=== PATIENT | female | born 1985 | race Caucasian/White ===

== ENCOUNTER → 2016-06-07 | Outpatient (CLI) | payer OTHER ==
[~2016-06-07] MED LIST: BCPILLS PO; PRED20TA2 PO
== END | disposition home or self-care (01) ==
LOC: C.PATHSPEC 17:46
PROVIDERS: ATTEND Obstetrics & Gynecology
DX: R87.610 Atypical squamous cells of undetermined significance on cytologic smear of cervix (ASC-US) (principal)

== ENCOUNTER 2017-02-01 04:21 | Emergency (ER) | payer OTHER ==
[~2017-02-01] VITALS: Ht 176.5 cm; Wt 69.1 kg
[~2017-02-01 04:21] MED LIST changes: -PRED20TA2 PO
[2017-02-01 04:25] VITALS: TEMP 36.3; Ht 176.5 cm; Wt 69.1 kg
[2017-02-01] MEDS ORDERED: FAMOTIDINE 20MG/102 ML D5W IV STA (04:35)
[2017-02-01] MEDS ORDERED: DiphenhydrAMINE HCL 50 MG/ML VIAL IV STA (04:35)
[2017-02-01] MEDS ORDERED: DEXAMETHASONE SOD INJ 4 MG/ML VIAL IV STA (04:35)
[2017-02-01] MEDS ORDERED: FAMOTIDINE IV INJ 20 MG in SYRINGE 3 ML IV STA (04:43)
--- NOTE | 2017-02-01 04:45 | EMERGENCY ROOM VISIT NOTE ---
History First contact with patient: 04:30 Chief Complaint: SKIN PROBLEM Stated Complaint: ITCHY,HIVES ALL OVER BODY History of Present Illness The patient is a 31 year old female who presents to the Emergency Room with complaints of hives. The patient states that she woke up in the middle of the night with hives all over her trunk, arms, legs and face and some swelling of the right eye. The patient has an allergy to penicillins but has not had any medications recently. She does report that she just returned from vacation in [place] but denies any new soaps, lotions, detergents, foods or makeup. The patient denies any difficulty breathing, difficulty swallowing, nausea or vomiting. Review of Systems A complete 10 point review of systems was reviewed with the patient with pertinent positives and negatives as per history of present illness. All else were negative. Social History Smoking Status: Never Smoker Current/Historical Medications Scheduled Prednisone (Prednisone Tab), 2 TAB PO DAILY Physical Exam Vital Signs Date Time Temp Pulse Resp B/P (MAP) Pulse Ox O2 Delivery O2 Flow Rate FiO2 02/01/17 05:34 66 18 110/70 100 02/01/17 04:25 36.3 92 18 137/86 100 Room Air Physical Exam VITALS: Vitals are noted on the nurse's note and reviewed by myself. Vital signs stable. GENERAL: This is a 31-year-old female, in no acute distress, nondiaphoretic, well-developed well-nourished. SKIN: There are erythematous urticarial lesions over bilateral arms, chest, mid back and bilateral lower legs. EARS: External auditory canals clear, tympanic membranes pearly waddell without erythema or effusion bilaterally. EYES: Mild right periorbital swelling. Pupils equal round and reactive to light and accommodation. MOUTH: Mucous membranes moist. Tonsils are not enlarged. Pharynx without erythema or exudate. Airway patent. NECK: Supple without nuchal rigidity. No lymphadenopathy. HEART: Regular rate and rhythm without murmurs gallops or rubs. LUNGS: Clear to auscultation bilaterally without wheezes, rales or rhonchi. NEURO: Patient was alert and oriented to person place and time. Medical Decision & Procedures Medications Administered Medications (Trade) Dose Ordered Sig/Elvin Route Start Time Stop Time Status Last Admin Dose Admin Diphenhydramine HCl (Benadryl Inj) 25 mg NOW STAT IV 02/01/17 04:35 02/01/17 04:36 DC 02/01/17 04:50 25 MG Dexamethasone Sodium Phosphate (Decadron Inj) 10 mg NOW STAT IV 02/01/17 04:35 02/01/17 04:36 DC 02/01/17 04:52 10 MG Famotidine (Pepcid 20mg/100 ml) 20 mg ONE STAT IV 02/01/17 04:35 02/01/17 04:36 DC 02/01/17 05:05 20 MG Medical Decision Differential diagnosis includes allergic dermatitis, urticaria, anaphylaxis, among others. The patient is a 31-year-old female who presents today complaining of itching and hives. Exam is consistent with urticaria. Patient was given IV Benadryl, Decadron and Zantac with relief of symptoms. She will be placed on prednisone and was instructed to continue Benadryl as needed. She will follow-up with her primary care provider for further evaluation. She verbalized understanding of my assessment and treatment plan and was discharged home in good condition. Medication Reconcilliation Current Medication List: was personally reviewed by me Blood Pressure Screening Patient's blood pressure: Normal blood pressure Impression Primary Impression: Urticaria Departure Information Dispostion Home / Self-Care Condition GOOD Prescriptions Prednisone (Prednisone Tab) 20 Mg Tab 2 TAB PO DAILY for 4 Days, #8 TAB Prov: Lisa Cline ., UMBERTO 02/01/17 Referrals No Doctor, Assigned (PCP) Patient Instructions My [facility] Additional Instructions You have been treated in the Emergency Department for an Allergic Reaction. You have been treated and monitored in the Emergency Department appropriately. You should take Benadryl (diphenhydramine) 25-50 mg orally every 4-6 hours as needed for itching/rash. You should take Zantac (ranitidine) 75 mg orally once daily as needed for itching/rash. You have been prescribed Prednisone 40 mg to be taken orally once a day for the next 4 days. This is an anti-inflammatory medicine to be used to help minimize your symptoms. You do not need to take this medication if the rash resolves today. If it persists, you may start it tomorrow. As with every Emergency Department visit, you should follow-up with your primary care provider in 2-3 days for reevaluation. Return to the Emergency Department if your current symptoms worsen despite treatment course outlined above, or if you develop any of the following symptoms : wheezing, tongue or face swelling, tightness in your throat, shortness of breath, or fainting.
[2017-02-01] MEDS ORDERED: PRED20TA2 PO (05:25)
[2017-02-01 05:34] VITALS: BP 110/70; PULSE 66; O2SAT 100
== END 2017-02-01 05:34 | disposition home or self-care (01) ==
LOC: C.EDB 04:22
DX: L50.9 Urticaria, unspecified (principal)

== ENCOUNTER → 2017-04-22 | Outpatient (CLI) | payer OTHER | END | disposition home or self-care (01) | LOC: C.PATHSPEC 18:03 | PROVIDERS: ATTEND Obstetrics & Gynecology | DX: D06.9 Carcinoma in situ of cervix, unspecified (principal) ==

== ENCOUNTER → 2017-05-23 | Outpatient (CLI) | payer OTHER | END | disposition home or self-care (01) | LOC: C.PATHSPEC 13:49 | PROVIDERS: ATTEND Obstetrics & Gynecology | DX: R87.613 High grade squamous intraepithelial lesion on cytologic smear of cervix (HGSIL) (principal) ==

== ENCOUNTER 2022-02-05 07:11 | Inpatient (IN) ==
[2022-02-05] MEDS ORDERED: LIDOCAINE 1% LOCAL 20 ML VIAL INFIL PRN (07:21)
[2022-02-05] MEDS ORDERED: OXYTOCIN 30 UNITS/500 ML BAG IV PRN ×2 (07:21→11:55)
[2022-02-05] MEDS: LACTATED RINGER'S 1,000 ML IV PRN ×3 (07:45→15:14)
[2022-02-05] MEDS: CLINDAMYCIN/D5W 900 MG/50 ML BAG IV SCH ×2 (07:50→15:10)
[2022-02-05 07:52] LABS: Hematocrit (blood only) 36.3 % (34.1-44.9); Hemoglobin 12.6 g/dl (12.0-16.0); Mean Corpuscular Hemoglobin 31.4 pg (25.0-34.0); Mean Corpuscular Hgb Conc 34.7 g/dL (32.0-36.0); Mean Corpuscular Volume 90.5 fL (80.0-100.0); Mean Platelet Volume 11.2 fL (9.4-12.3); Platelet Count 218 K/uL (130-400); RDW Coefficient of Variation 13.1 % (11.5-14.5); RDW Standard Deviation 42.9 fL (36.4-46.3); Red Blood Count 4.01 M/uL (3.93-5.22); White Blood Count 13.02 K/ul (4.8-10.8)
[2022-02-05] MEDS ORDERED: ePHEDrine sulfate 50 MG/ML AMP ONE (07:56)
[2022-02-05] MEDS ORDERED: fentaNYL citrate 100 MCG/2 ML VIAL ONE ×2 (07:56→21:52)
[2022-02-05] MEDS ORDERED: LIDOCAINE 2%/EPINEPHRINE 1:200,000 20 ML SDV ONE ×3 (07:56→22:47)
[2022-02-05] MEDS ORDERED: BUPIVACAINE 0.25% 30 ML VIAL ONE (07:56)
[2022-02-05] MEDS ORDERED: SODIUM CHLORIDE 0.9% INJ 10 ML VIAL ONE (07:56)
[2022-02-05] MEDS ORDERED: fentaNYL 2MCG/ML ROPIVACAINE 1.25MG/ML 100 ML BAG EPI ONE (07:57)
[2022-02-05] MEDS ORDERED: NALOXONE HCL 1 MG in SODIUM CHLORIDE 0.9% 1000ML 1,000 ML IV PRN ×2 (08:29→22:56)
[2022-02-05] MEDS ORDERED: diphenhydrAMINE 50 MG/ML VIAL IV PRN ×2 (08:29→22:56)
[2022-02-05] MEDS ORDERED: NALOXONE HCL 0.4 MG/1 ML VIAL/CARP IV PRN ×2 (08:29→22:56)
[2022-02-05] MEDS ORDERED: ePHEDrine sulfate 50 MG/ML AMP IV PRN ×2 (08:29→22:56)
[2022-02-05] MEDS ORDERED: NALBUPHINE HCL INJ 10 MG/ML AMP IV PRN ×2 (08:29→22:56)
[2022-02-05] MEDS ORDERED: ONDANSETRON INJ 2 MG/ML 2 ML VIAL IV PRN ×2 (08:30→22:56)
--- NOTE | 2022-02-05 08:31 | Anesthesiology Consultation ---
Date of Service February 05, 2022 Assessment & Plan ASA ASA2 Proposed Anesthesia Anesthesia Type: Labor Epidural Risk / Benefits Reviewed With: PT / POA / Parent / Guardian, Accepts Plan and Informed Consent Obtained History Allergies Allergy/AdvReac Type Severity Reaction Status Date / Time Penicillins Allergy Unknown HIVES/SWELL Verified 02/04/22 13:48 ING Medications Home Medications Medication Instructions Recorded Confirmed Last Taken prenat.vits,soto,lgc-hurt-heldr 1 tab PO DAILY 02/04/22 02/05/22 02/04/22 Active Medications Generic Name Dose Route Start Last Admin Trade Name Freq PRN Reason Stop Dose Admin Lactated Ringer's 1,000 mls @ 125 mls/hr 02/05/22 07:21 02/05/22 07:45 Lr IV 02/07/22 07:20 999 mls/hr .Q8H PRN Administration L&D Protocol Protocol Clindamycin Phosphate 900 mg in 50 mls @ 100 mls/hr 02/05/22 07:30 02/05/22 07:50 Cleocin/D5w IV 02/15/22 07:29 100 mls/hr Q8H JEY Administration Past Medical History Medical History DOTTIE III (cervical intraepithelial neoplasia III) History of bucket handle tear of lateral meniscus Exercise / Class Metabolic Activity II 4-5 Yardwork/Stairs/Walk up hill Past Family History Family History Sister Hx of malignant neoplasm of breast Ovarian cancer paternal half sister Family/Other Breast cancer cousin Denies family history of Prostate cancer Myocardial infarction Colorectal cancer Past Surgical History Surgical History History of loop electrical excision procedure (LEEP) Hx of tooth extraction Status post lateral meniscus repair Past Anesthesia History No Hx of Anesthesia Complications and No Family Hx of Anesthesia Complications History of PONV No Hx of PONV and No Hx of Motion Sickness Social History Smoking Status: Former smoker Hx Alcohol Use: No Hx Substance Use: No substance use type: does not use Review of Systems denies fever/cough/ colds/ chest pain/ SOB/ KARLA denies KARLA Physical Exam Vital Signs Last Vital Signs Pulse 75 02/05/22 08:27 BP 143/88 H 12/02/22 08:25 Pulse Ox 99 02/05/22 08:27 ENMT Mouth: no TMJ abnormality and no dentition abnormality Thyromental Distance: > or= 3.5 Finger Breadths Mallampati Class: II Neck neck extension not limited Respiratory normal respiratory effort; no respiratory distress Auscultation: lungs clear to auscultation bilaterally Cardiovascular Rate/Rhythm: regular rate and regular rhythm Neurologic moves all extremities Psychiatric Orientation: alert and oriented x 3 Testing Laboratory Results 02/05/22 07:40
--- NOTE | 2022-02-05 09:09 | History & Physical Report ---
Date of Service February 05, 2022 Assessment & Plan (1) with 38 completed weeks gestation: (2) Normal labor: Plan Patient now in active labor. fetus reassuring. Plan to admit. Desires epidural. Patient with a lga baby. Have discussed with the patient in detail the +/- of jered and primary c/s. She likely does not have a baby that >5000gm. She desires a jered/vaginal delivery if at all possible. Plan to augment/arom if indicated. GBS positive, sensitive to clinda. Allegic to pcn with hives/swelling. Discussed situation with the peds weigher production. She is ok with clinda for prophylaxis. History of Present Illness Chief Complaint: more painful contractions Primary Care Provider: NO PCP Patient is a 36yowf with iup at 38 3/7 weeks who presents to labor and delivery for more painful contractions. Patient has been in labor and delivery x 2 with contractions. She is tearful and exhaused. She notes no lof/vb. +fm. Patient has hx of leep. Baby has been measuring lga with last us ac 98/efw 95. Was scheduled for induction next week. and Delivery Plans AMA *Weekly NST's @ 36wks. Covid Vaccine x 2 1 prior LEEP Flu shot given 11/26/21 - AL EFW 94% at [facility]. 12/24 - 97% *Growth US at 32wks--efw 97/ac 97 *growth at 36 --efw 95/AC 98% Mild Polyhydramnios - DVP 8.7 12/24 (32 week growth) dvp 12/30--6.5 - Weekly NST/ DVP - MFM if DVP >16 - Delivery at 39-39.6 OB Labs: Blood Type O Positive 08/06/21 Antibody Screen NEGATIVE 08/06/21 Hemoglobin 12.7 g/dl (12.0-16.0) 11/26/21 Hematocrit 37.3 % (34.1-44.9) 11/26/21 Mean Corpuscular Volume 91.7 fL (80-100) 08/06/21 Platelet Count 266 K/uL (130-400) 08/06/21 Varicella-Zoster IgG Antibody 908.10 index 04/30/21 Rubella IgG Antibody Immune (Immune) 08/06/21 Rapid Plasma Reagin Nonreactive (Nonreactive) 08/06/21 Hepatitis B Surface Antigen Neg (Neg) 04/30/21 F Hepatitis B Surface Antigen. NON-REACTIVE (NON-REACTIVE) 08/06/21 Hepatitis C Antibody Neg (Neg) 04/30/21 Hepatitis C Antibody (EIA) NON-REACTIVE (NON-REACTIVE)B 08/06/21 HIV (1&2) Ab and P24 Ag, 4th Gener Neg (Neg) 04/30/21 HIV (1&2) Ag and Ab Confirmation NON-REACTIVE (NON-REACTIVE) 08/06/21 Glucose 1 Hour 50 gm Load 94 mg/dl (70-130) 11/26/21 Maternal Serum Alpha Fetoprotein 26.8 ng/mL 09/03/21 OB Optional Labs: Chlamydia trachomatis RNA NOT DETECTED (NOT DETECTED) 07/09/21 Neisseria gonorrhoeae RNA NOT DETECTED (NOT DETECTED) 07/09/21 Thyroid Stimulating Hormone (TSH) 1.700 uIu/ml (0.300-4.500) 10/10/20 Alpha Fetoprotein Triple Screen SEE NOTE 09/03/21 Labs Reviewed: low risk cfdna - sln AFP neg - sln expanded carrier 283 genes--carrier non-syndromic hearing loss neg all others Allergies Allergy/AdvReac Type Severity Reaction Status Date / Time Penicillins Allergy Unknown HIVES/SWELL Verified 02/04/22 13:48 ING Home Medications Medication Instructions Recorded Confirmed Type prenat.vits,soto,xbk-fqgy-khudx 1 tab PO DAILY 02/04/22 02/05/22 History Patient History Medical History DOTTIE III (cervical intraepithelial neoplasia III) History of bucket handle tear of lateral meniscus Surgical History History of loop electrical excision procedure (LEEP) Hx of tooth extraction Status post lateral meniscus repair Family History Sister Hx of malignant neoplasm of breast Ovarian cancer paternal half sister Family/Other Breast cancer cousin Denies family history of Prostate cancer Myocardial infarction Colorectal cancer Social History Smoking Status: Former smoker Second Hand Exposure: No; Do You Dip or Chew Tobacco: No; Tobacco Cessation Education Requested by Patient: No Hx Alcohol Use: No Hx Substance Use: No Preferred Language: [place] Communication Ability: Effective Filling Carrier Required: No Beliefs That Will Affect Care: None marital status: marital status details: Spouse: Norm (34) [phone] Current Living Situation: Spouse Current Living Situation Comment: Norm- current occupational status: employed current occupation: RN AT [employer] @ [employer] Other Information That Helps Us Care for You: No Feels Safe at Home: Yes Safety Concerns: Feels Safe At This Time Dental Care, Regularly: Yes Physical Activity Frequency: 3-4 Times per Week Assistive Devices: Glasses OB History g1--present [employer] History noncontributory Physical Exam Constitutional: WD/WN, vitals as above Cardiovascular: Extremities: + edema (tr); no calf tenderness Gastrointestinal (Abdomen): soft, gravid, nt Psychiatric: A+Ox3, euthymic affect Genitourinary: cx--4/100/-2 toco--q2-4 efm--130s with mod variabiltiy, no accels, no decels Results & Data ([place]) Vital Signs (Past 12 Hours) Vital Signs Pulse BP Pulse Ox 02/05/22 09:07 97 02/05/22 09:07 82 02/05/22 09:02 74 02/05/22 09:02 129/68 02/05/22 09:02 97 02/05/22 09:02 84 02/05/22 09:00 76 02/05/22 09:00 130/74 02/05/22 08:58 74 02/05/22 08:58 130/71 02/05/22 08:57 98 02/05/22 08:57 79 02/05/22 08:56 82 02/05/22 08:56 133/74 02/05/22 08:54 84 02/05/22 08:54 130/74 02/05/22 08:51 98 02/05/22 08:51 94 H 02/05/22 08:52 82 02/05/22 08:52 136/76 02/05/22 08:50 82 02/05/22 08:50 138/83 02/05/22 08:48 76 02/05/22 08:48 137/81 02/05/22 08:46 97 02/05/22 08:46 94 H 02/05/22 08:46 82 02/05/22 08:46 131/76 02/05/22 08:44 87 02/05/22 08:44 125/85 02/05/22 08:41 100 02/05/22 08:41 98 H 02/05/22 08:42 100 H 02/05/22 08:42 149/90 H 02/05/22 08:40 100 H 02/05/22 08:40 152/90 H 02/05/22 08:37 99 02/05/22 08:37 88 02/05/22 08:32 98 02/05/22 08:32 79 02/05/22 08:27 99 02/05/22 08:27 75 02/05/22 08:25 73 02/05/22 08:25 143/88 H 02/05/22 08:22 99 02/05/22 08:22 89 02/05/22 08:17 100 02/05/22 08:17 69 02/05/22 08:12 100 02/05/22 08:12 80 02/05/22 08:09 78 02/05/22 08:09 136/85 02/05/22 08:07 100 02/05/22 08:07 78 02/05/22 07:36 77 02/05/22 07:36 144/74 H 02/05/22 07:20 90 161/91 H Coding Level of Care Code None Diagnoses with 38 completed weeks gestation Z3A.38 Normal labor O80; Z37.9
--- NOTE | 2022-02-05 11:55 | Labor Progress Brief Note ---
Date of Service February 05, 2022 Subjective comfortable with epidural Assessment & Plan (1) Normal labor: Plan ctx have spaced with epidural, discuss arom vs. pit/arom and will go with latter because of gbs positive. Will start pit. Fetus overall reassuring, but occasionally flat. Will continue to monitor closely. Patient feeling FM. Physical Exam Physical Exam: cx--5/100/-2 toco--q5-7 efm--130s with min to mod variabiltiy, small accels , no decels Results & Data ([facility]) Vital Signs (Past 12 Hours) Vital Signs Temp Pulse Resp BP Pulse Ox 02/05/22 08:00 36.7 C 18 02/05/22 11:49 99 02/05/22 11:49 85 02/05/22 11:44 97 02/05/22 11:44 63 02/05/22 11:39 97 02/05/22 11:39 63 02/05/22 11:34 97 02/05/22 11:34 65 02/05/22 11:29 98 02/05/22 11:29 63 02/05/22 11:24 97 02/05/22 11:24 62 02/05/22 11:19 98 02/05/22 11:19 64 02/05/22 11:14 98 02/05/22 11:14 71 02/05/22 10:55 18 02/05/22 10:55 18 02/05/22 11:09 98 02/05/22 11:09 74 02/05/22 11:04 98 02/05/22 11:04 74 02/05/22 10:51 98 02/05/22 10:51 70 02/05/22 10:48 68 02/05/22 10:48 119/69 02/05/22 10:46 97 02/05/22 10:46 67 02/05/22 10:41 97 02/05/22 10:41 73 02/05/22 10:36 97 02/05/22 10:36 71 02/05/22 10:34 71 02/05/22 10:34 122/76 02/05/22 10:32 97 02/05/22 10:32 81 02/05/22 10:30 18 02/05/22 10:30 18 02/05/22 10:15 18 02/05/22 10:15 18 02/05/22 10:26 97 02/05/22 10:26 81 02/05/22 10:21 97 02/05/22 10:21 81 02/05/22 10:18 68 02/05/22 10:18 119/66 02/05/22 10:16 97 02/05/22 10:16 69 02/05/22 10:11 97 02/05/22 10:11 68 02/05/22 10:06 97 02/05/22 10:06 70 02/05/22 09:59 18 02/05/22 09:59 18 02/05/22 10:03 72 02/05/22 10:03 119/69 02/05/22 10:01 97 02/05/22 10:01 82 02/05/22 09:56 97 02/05/22 09:56 80 02/05/22 09:15 20 02/05/22 09:15 20 02/05/22 09:31 16 02/05/22 09:31 16 02/05/22 09:45 16 02/05/22 09:45 16 02/05/22 08:48 18 02/05/22 08:48 18 02/05/22 08:51 18 02/05/22 08:51 18 02/05/22 08:55 18 02/05/22 08:55 18 02/05/22 08:59 18 02/05/22 08:59 18 02/05/22 09:05 18 02/05/22 09:05 18 02/05/22 09:51 98 02/05/22 09:51 81 02/05/22 09:48 78 02/05/22 09:48 125/71 02/05/22 09:46 97 02/05/22 09:46 73 02/05/22 09:42 97 02/05/22 09:42 85 02/05/22 09:36 97 02/05/22 09:36 83 02/05/22 09:34 80 02/05/22 09:34 127/73 02/05/22 09:32 97 02/05/22 09:32 83 02/05/22 09:26 97 02/05/22 09:26 79 02/05/22 09:22 97 02/05/22 09:22 76 02/05/22 09:18 79 02/05/22 09:18 130/76 02/05/22 09:16 97 02/05/22 09:16 78 02/05/22 09:13 70 02/05/22 09:13 127/70 02/05/22 09:12 97 02/05/22 09:12 81 02/05/22 09:09 74 02/05/22 09:09 129/67 02/05/22 09:07 97 02/05/22 09:07 82 02/05/22 09:02 74 02/05/22 09:02 129/68 02/05/22 09:02 97 02/05/22 09:02 84 02/05/22 09:00 76 02/05/22 09:00 130/74 02/05/22 08:58 74 02/05/22 08:58 130/71 02/05/22 08:57 98 02/05/22 08:57 79 02/05/22 08:56 82 02/05/22 08:56 133/74 02/05/22 08:54 84 02/05/22 08:54 130/74 02/05/22 08:51 98 02/05/22 08:51 94 H 02/05/22 08:52 82 02/05/22 08:52 136/76 02/05/22 08:50 82 02/05/22 08:50 138/83 02/05/22 08:48 76 02/05/22 08:48 137/81 02/05/22 08:46 97 02/05/22 08:46 94 H 02/05/22 08:46 82 02/05/22 08:46 131/76 02/05/22 08:44 87 02/05/22 08:44 125/85 02/05/22 08:41 100 02/05/22 08:41 98 H 02/05/22 08:42 100 H 02/05/22 08:42 149/90 H 02/05/22 08:40 100 H 02/05/22 08:40 152/90 H 02/05/22 08:37 99 02/05/22 08:37 88 02/05/22 08:32 98 02/05/22 08:32 79 02/05/22 08:27 99 02/05/22 08:27 75 02/05/22 08:25 73 02/05/22 08:25 143/88 H 02/05/22 08:22 99 02/05/22 08:22 89 02/05/22 08:17 100 02/05/22 08:17 69 02/05/22 08:12 100 02/05/22 08:12 80 02/05/22 08:09 78 02/05/22 08:09 136/85 02/05/22 08:07 100 02/05/22 08:07 78 02/05/22 07:36 77 02/05/22 07:36 144/74 H 02/05/22 07:20 90 161/91 H Coding Level of Care Code None Diagnoses Normal labor O80; Z37.9
[2022-02-05] MEDS ORDERED: Nursing to Pharmacy Communication SCH (13:45)
[2022-02-05] MEDS: fentaNYL 2MCG/ML ROPIVACAINE 1.25MG/ML 100 ML BAG EPI PRN ×2 (15:25→20:20)
--- NOTE | 2022-02-05 17:18 | Labor Progress Brief Note ---
Date of Service February 05, 2022 heart rate is category 1 she is on Pitocin 6 milliunits/min her contractions are adequate as we have an IUPC and she has adequate [place] units additionally she has some thin meconium she is now 8 cm -1 station she is making good progress we will continue to follow closely Results & Data ([facility] [place]) Vital Signs (Past 12 Hours) Vital Signs Temp Pulse Resp BP Pulse Ox 02/05/22 08:00 98.1 F 18 02/05/22 17:14 100 02/05/22 17:14 79 02/05/22 17:11 75 02/05/22 17:11 121/71 02/05/22 17:09 100 02/05/22 17:09 80 02/05/22 17:04 99 02/05/22 17:04 65 02/05/22 16:59 99 02/05/22 16:59 67 02/05/22 16:56 74 02/05/22 16:56 127/82 02/05/22 16:54 98 02/05/22 16:54 81 02/05/22 16:49 99 02/05/22 16:49 73 02/05/22 16:44 100 02/05/22 16:44 71 02/05/22 16:41 64 02/05/22 16:41 132/81 02/05/22 16:39 99 02/05/22 16:39 60 02/05/22 16:34 99 02/05/22 16:34 65 02/05/22 16:29 98 02/05/22 16:29 66 02/05/22 16:26 62 02/05/22 16:26 129/79 02/05/22 16:24 99 02/05/22 16:24 62 02/05/22 16:19 98 02/05/22 16:19 65 02/05/22 16:15 18 02/05/22 16:15 18 02/05/22 16:14 98 02/05/22 16:14 64 02/05/22 16:11 61 02/05/22 16:11 129/81 02/05/22 16:09 100 02/05/22 16:09 62 02/05/22 16:00 18 02/05/22 16:00 18 02/05/22 16:04 100 02/05/22 16:04 62 02/05/22 15:26 98.2 F 02/05/22 15:31 18 02/05/22 15:31 18 02/05/22 15:59 100 02/05/22 15:59 64 02/05/22 15:56 92 02/05/22 15:56 70 02/05/22 15:56 127/88 02/05/22 15:54 100 02/05/22 15:54 75 02/05/22 15:49 100 02/05/22 15:49 69 02/05/22 15:00 18 02/05/22 15:00 18 02/05/22 15:44 100 02/05/22 15:44 69 02/05/22 15:41 75 02/05/22 15:41 132/94 02/05/22 15:39 99 02/05/22 15:39 73 02/05/22 15:34 100 02/05/22 15:34 75 02/05/22 15:34 91 02/05/22 15:34 89 02/05/22 15:29 100 02/05/22 15:29 80 02/05/22 15:28 90 02/05/22 15:28 76 02/05/22 15:26 75 02/05/22 15:26 131/87 02/05/22 15:24 100 02/05/22 15:24 75 02/05/22 15:20 93 02/05/22 15:20 80 02/05/22 15:19 100 02/05/22 15:19 78 02/05/22 15:14 100 02/05/22 15:14 73 02/05/22 15:12 78 02/05/22 15:12 129/86 02/05/22 15:09 99 02/05/22 15:09 87 02/05/22 15:04 100 02/05/22 15:04 74 02/05/22 14:59 99 02/05/22 14:59 96 H 02/05/22 14:57 77 02/05/22 14:57 122/82 02/05/22 14:54 100 02/05/22 14:54 77 02/05/22 14:49 98 02/05/22 14:49 75 02/05/22 14:44 99 02/05/22 14:44 80 02/05/22 14:41 78 02/05/22 14:41 119/78 02/05/22 14:39 99 02/05/22 14:39 83 02/05/22 14:34 98 02/05/22 14:34 64 02/05/22 14:29 99 02/05/22 14:29 72 02/05/22 14:27 62 02/05/22 14:27 121/77 02/05/22 14:24 98 02/05/22 14:24 72 02/05/22 14:19 99 02/05/22 14:19 74 02/05/22 14:14 99 02/05/22 14:14 79 02/05/22 14:11 66 02/05/22 14:11 119/72 02/05/22 14:09 98 02/05/22 14:09 64 02/05/22 13:15 98.1 F 02/05/22 14:04 99 02/05/22 14:04 73 02/05/22 14:00 18 02/05/22 14:00 18 02/05/22 13:59 99 02/05/22 13:59 75 02/05/22 13:56 64 02/05/22 13:56 117/75 02/05/22 13:54 98 02/05/22 13:54 62 02/05/22 13:49 100 02/05/22 13:49 61 02/05/22 13:31 18 02/05/22 13:31 18 02/05/22 13:44 100 02/05/22 13:44 66 02/05/22 13:39 100 02/05/22 13:39 69 02/05/22 13:34 100 02/05/22 13:34 71 02/05/22 13:29 100 02/05/22 13:29 70 02/05/22 13:24 100 02/05/22 13:24 69 02/05/22 13:19 100 02/05/22 13:19 62 02/05/22 13:14 100 02/05/22 13:14 86 02/05/22 13:09 99 02/05/22 13:09 60 02/05/22 13:04 99 02/05/22 13:04 59 L 02/05/22 12:59 99 02/05/22 12:59 61 02/05/22 12:54 99 02/05/22 12:54 60 02/05/22 12:49 99 02/05/22 12:49 62 02/05/22 12:44 99 02/05/22 12:44 61 02/05/22 12:39 98 02/05/22 12:39 81 02/05/22 12:34 98 02/05/22 12:34 74 02/05/22 12:30 18 02/05/22 12:30 18 02/05/22 12:29 99 02/05/22 12:29 65 02/05/22 12:15 18 02/05/22 12:15 18 02/05/22 12:00 18 02/05/22 12:00 18 02/05/22 12:24 98 02/05/22 12:24 73 02/05/22 12:19 99 02/05/22 12:19 70 02/05/22 12:14 98 02/05/22 12:14 74 02/05/22 12:09 99 02/05/22 12:09 84 02/05/22 12:04 99 02/05/22 12:04 76 02/05/22 11:59 98 02/05/22 11:59 63 02/05/22 11:30 18 02/05/22 11:30 18 02/05/22 11:54 98 02/05/22 11:54 73 02/05/22 11:49 99 02/05/22 11:49 85 02/05/22 11:44 97 02/05/22 11:44 63 02/05/22 11:39 97 02/05/22 11:39 63 02/05/22 11:34 97 02/05/22 11:34 65 02/05/22 11:29 98 02/05/22 11:29 63 02/05/22 11:24 97 02/05/22 11:24 62 02/05/22 11:19 98 02/05/22 11:19 64 02/05/22 11:14 98 02/05/22 11:14 71 02/05/22 10:55 18 02/05/22 10:55 18 02/05/22 11:09 98 02/05/22 11:09 74 02/05/22 11:04 98 02/05/22 11:04 74 02/05/22 10:51 98 02/05/22 10:51 70 02/05/22 10:48 68 02/05/22 10:48 119/69 02/05/22 10:46 97 02/05/22 10:46 67 02/05/22 10:41 97 02/05/22 10:41 73 02/05/22 10:36 97 02/05/22 10:36 71 02/05/22 10:34 71 02/05/22 10:34 122/76 02/05/22 10:32 97 02/05/22 10:32 81 02/05/22 10:30 18 02/05/22 10:30 18 02/05/22 10:15 18 02/05/22 10:15 18 02/05/22 10:26 97 02/05/22 10:26 81 02/05/22 10:21 97 02/05/22 10:21 81 02/05/22 10:18 68 02/05/22 10:18 119/66 02/05/22 10:16 97 02/05/22 10:16 69 02/05/22 10:11 97 02/05/22 10:11 68 02/05/22 10:06 97 02/05/22 10:06 70 02/05/22 09:59 18 02/05/22 09:59 18 02/05/22 10:03 72 02/05/22 10:03 119/69 02/05/22 10:01 97 02/05/22 10:01 82 02/05/22 09:56 97 02/05/22 09:56 80 02/05/22 09:15 20 02/05/22 09:15 20 02/05/22 09:31 16 02/05/22 09:31 16 02/05/22 09:45 16 02/05/22 09:45 16 02/05/22 08:48 18 02/05/22 08:48 18 02/05/22 08:51 18 02/05/22 08:51 18 02/05/22 08:55 18 02/05/22 08:55 18 02/05/22 08:59 18 02/05/22 08:59 18 02/05/22 09:05 18 02/05/22 09:05 18 02/05/22 09:51 98 02/05/22 09:51 81 02/05/22 09:48 78 02/05/22 09:48 125/71 02/05/22 09:46 97 02/05/22 09:46 73 02/05/22 09:42 97 02/05/22 09:42 85 02/05/22 09:36 97 02/05/22 09:36 83 02/05/22 09:34 80 02/05/22 09:34 127/73 02/05/22 09:32 97 02/05/22 09:32 83 02/05/22 09:26 97 02/05/22 09:26 79 02/05/22 09:22 97 02/05/22 09:22 76 02/05/22 09:18 79 02/05/22 09:18 130/76 02/05/22 09:16 97 02/05/22 09:16 78 02/05/22 09:13 70 02/05/22 09:13 127/70 02/05/22 09:12 97 02/05/22 09:12 81 02/05/22 09:09 74 02/05/22 09:09 129/67 02/05/22 09:07 97 02/05/22 09:07 82 02/05/22 09:02 74 02/05/22 09:02 129/68 02/05/22 09:02 97 02/05/22 09:02 84 02/05/22 09:00 76 02/05/22 09:00 130/74 02/05/22 08:58 74 02/05/22 08:58 130/71 02/05/22 08:57 98 02/05/22 08:57 79 02/05/22 08:56 82 02/05/22 08:56 133/74 02/05/22 08:54 84 02/05/22 08:54 130/74 02/05/22 08:51 98 02/05/22 08:51 94 H 02/05/22 08:52 82 02/05/22 08:52 136/76 02/05/22 08:50 82 02/05/22 08:50 138/83 02/05/22 08:48 76 02/05/22 08:48 137/81 02/05/22 08:46 97 02/05/22 08:46 94 H 02/05/22 08:46 82 02/05/22 08:46 131/76 02/05/22 08:44 87 02/05/22 08:44 125/85 02/05/22 08:41 100 02/05/22 08:41 98 H 02/05/22 08:42 100 H 02/05/22 08:42 149/90 H 02/05/22 08:40 100 H 02/05/22 08:40 152/90 H 02/05/22 08:37 99 02/05/22 08:37 88 02/05/22 08:32 98 02/05/22 08:32 79 02/05/22 08:27 99 02/05/22 08:27 75 02/05/22 08:25 73 02/05/22 08:25 143/88 H 02/05/22 08:22 99 02/05/22 08:22 89 02/05/22 08:17 100 02/05/22 08:17 69 02/05/22 08:12 100 02/05/22 08:12 80 02/05/22 08:09 78 02/05/22 08:09 136/85 02/05/22 08:07 100 02/05/22 08:07 78 02/05/22 07:36 77 02/05/22 07:36 144/74 H 02/05/22 07:20 90 161/91 H Coding Level of Care Code None
[2022-02-05] MEDS ORDERED: GENTAMICIN CONSULT ACTIVE PRN (20:55)
--- NOTE | 2022-02-05 20:59 | Obstetrical Progress Note ---
Date of Service February 05, 2022 Subjective Patient has been pushing for an hour however is still at a high station descending and most of 0 the patient is very uncomfortable there is also a tachycardia in the 170s. This is new onset she is group B strep positive and is being treated appropriately I offered the patient 3 options 1 was to continue pushing she is very uncomfortable now although a second will be the we dose her epidural at third would be to proceed to section this would be especially considering the baby is thought to be quite large on obstetrical sonogram at this stage I am reluctant to put a vacuum on as it is not low enough and the baby is thought to be large I have offered the patient all 3 options discussed risks and benefits we agree both her and her and myself that section is the best course at this time especially considering the size of the baby. Results & Data ([facility]) Vital Signs (Past 12 Hours) Vital Signs Temp Pulse Resp BP Pulse Ox 02/05/22 20:56 83 02/05/22 20:56 147/92 H 02/05/22 20:54 100 02/05/22 20:54 89 02/05/22 20:40 98.2 F 02/05/22 20:49 98 02/05/22 20:49 106 H 02/05/22 20:44 97 02/05/22 20:44 94 H 02/05/22 20:39 100 02/05/22 20:39 106 H 02/05/22 20:30 18 02/05/22 20:30 18 02/05/22 20:34 100 02/05/22 20:34 103 H 02/05/22 20:32 86 02/05/22 20:32 117/70 02/05/22 20:29 100 02/05/22 20:29 80 02/05/22 20:24 100 02/05/22 20:24 89 02/05/22 20:19 100 02/05/22 20:19 88 02/05/22 20:14 100 02/05/22 20:14 100 H 02/05/22 20:11 90 02/05/22 20:11 96 H 02/05/22 20:09 98 02/05/22 20:09 99 H 02/05/22 20:00 18 02/05/22 20:00 18 02/05/22 20:05 90 02/05/22 20:05 98 H 02/05/22 20:04 99 02/05/22 20:04 100 H 02/05/22 19:59 100 02/05/22 19:59 75 02/05/22 19:54 100 02/05/22 19:54 100 H 02/05/22 19:49 100 02/05/22 19:49 97 H 02/05/22 19:44 100 02/05/22 19:44 85 02/05/22 19:42 96 H 02/05/22 19:42 161/72 H 02/05/22 19:39 100 02/05/22 19:39 108 H 02/05/22 19:34 100 02/05/22 19:34 84 02/05/22 19:30 18 02/05/22 19:30 18 02/05/22 19:29 83 L 02/05/22 19:29 90 02/05/22 19:29 92 02/05/22 19:29 89 02/05/22 19:26 92 H 02/05/22 19:26 141/91 H 02/05/22 19:24 100 02/05/22 19:24 97 H 02/05/22 19:19 100 02/05/22 19:19 89 02/05/22 19:14 100 02/05/22 19:14 96 H 02/05/22 19:11 94 H 02/05/22 19:11 147/88 H 02/05/22 19:09 100 02/05/22 19:09 93 H 02/05/22 19:04 100 02/05/22 19:04 96 H 02/05/22 18:59 100 02/05/22 18:59 93 H 02/05/22 18:57 90 02/05/22 18:57 154/72 H 02/05/22 18:54 100 02/05/22 18:54 100 H 02/05/22 18:49 97 02/05/22 18:49 95 H 02/05/22 18:48 80 L 02/05/22 18:48 98 H 02/05/22 18:44 100 02/05/22 18:44 99 H 02/05/22 18:42 91 02/05/22 18:42 122 H 02/05/22 18:41 100 H 02/05/22 18:41 159/74 H 02/05/22 18:39 98 02/05/22 18:39 95 H 02/05/22 18:34 100 02/05/22 18:34 101 H 02/05/22 18:29 99 02/05/22 18:29 94 H 02/05/22 18:24 100 02/05/22 18:24 116 H 02/05/22 18:19 100 02/05/22 18:19 87 02/05/22 17:40 98.2 F 02/05/22 18:14 99 02/05/22 18:14 93 H 02/05/22 18:11 92 H 02/05/22 18:11 147/92 H 02/05/22 18:09 100 02/05/22 18:09 96 H 02/05/22 18:04 100 02/05/22 18:04 85 02/05/22 18:02 93 02/05/22 18:02 88 02/05/22 17:59 100 02/05/22 17:59 92 H 02/05/22 17:57 76 02/05/22 17:57 139/87 02/05/22 17:54 98 02/05/22 17:54 70 02/05/22 17:49 100 02/05/22 17:49 74 02/05/22 17:44 100 02/05/22 17:44 70 02/05/22 17:41 79 02/05/22 17:41 134/87 02/05/22 17:39 100 02/05/22 17:39 67 02/05/22 17:34 100 02/05/22 17:34 64 02/05/22 17:25 98.1 F 02/05/22 17:31 18 02/05/22 17:31 18 02/05/22 17:29 100 02/05/22 17:29 68 02/05/22 17:26 68 02/05/22 17:26 132/78 02/05/22 17:24 100 02/05/22 17:24 70 02/05/22 17:19 100 02/05/22 17:19 89 02/05/22 17:14 100 02/05/22 17:14 79 02/05/22 17:11 75 02/05/22 17:11 121/71 02/05/22 17:09 100 02/05/22 17:09 80 02/05/22 17:04 99 02/05/22 17:04 65 02/05/22 16:59 99 02/05/22 16:59 67 02/05/22 16:56 74 02/05/22 16:56 127/82 02/05/22 16:54 98 02/05/22 16:54 81 02/05/22 16:49 99 02/05/22 16:49 73 02/05/22 16:44 100 02/05/22 16:44 71 02/05/22 16:41 64 02/05/22 16:41 132/81 02/05/22 16:39 99 02/05/22 16:39 60 02/05/22 16:34 99 02/05/22 16:34 65 02/05/22 16:29 98 02/05/22 16:29 66 02/05/22 16:26 62 02/05/22 16:26 129/79 02/05/22 16:24 99 02/05/22 16:24 62 02/05/22 16:19 98 02/05/22 16:19 65 02/05/22 16:15 18 02/05/22 16:15 18 02/05/22 16:14 98 02/05/22 16:14 64 02/05/22 16:11 61 02/05/22 16:11 129/81 02/05/22 16:09 100 02/05/22 16:09 62 02/05/22 16:00 18 02/05/22 16:00 18 02/05/22 16:04 100 02/05/22 16:04 62 02/05/22 15:26 98.2 F 02/05/22 15:31 18 02/05/22 15:31 18 02/05/22 15:59 100 02/05/22 15:59 64 02/05/22 15:56 92 02/05/22 15:56 70 02/05/22 15:56 127/88 02/05/22 15:54 100 02/05/22 15:54 75 02/05/22 15:49 100 02/05/22 15:49 69 02/05/22 15:00 18 02/05/22 15:00 18 02/05/22 15:44 100 02/05/22 15:44 69 02/05/22 15:41 75 02/05/22 15:41 132/94 02/05/22 15:39 99 02/05/22 15:39 73 02/05/22 15:34 100 02/05/22 15:34 75 02/05/22 15:34 91 02/05/22 15:34 89 02/05/22 15:29 100 02/05/22 15:29 80 02/05/22 15:28 90 02/05/22 15:28 76 02/05/22 15:26 75 02/05/22 15:26 131/87 02/05/22 15:24 100 02/05/22 15:24 75 02/05/22 15:20 93 02/05/22 15:20 80 02/05/22 15:19 100 02/05/22 15:19 78 02/05/22 15:14 100 02/05/22 15:14 73 02/05/22 15:12 78 02/05/22 15:12 129/86 02/05/22 15:09 99 02/05/22 15:09 87 02/05/22 15:04 100 02/05/22 15:04 74 02/05/22 14:59 99 02/05/22 14:59 96 H 02/05/22 14:57 77 02/05/22 14:57 122/82 02/05/22 14:54 100 02/05/22 14:54 77 02/05/22 14:49 98 02/05/22 14:49 75 02/05/22 14:44 99 02/05/22 14:44 80 02/05/22 14:41 78 02/05/22 14:41 119/78 02/05/22 14:39 99 02/05/22 14:39 83 02/05/22 14:34 98 02/05/22 14:34 64 02/05/22 14:29 99 02/05/22 14:29 72 02/05/22 14:27 62 02/05/22 14:27 121/77 02/05/22 14:24 98 02/05/22 14:24 72 02/05/22 14:19 99 02/05/22 14:19 74 02/05/22 14:14 99 02/05/22 14:14 79 02/05/22 14:11 66 02/05/22 14:11 119/72 02/05/22 14:09 98 02/05/22 14:09 64 02/05/22 13:15 98.1 F 02/05/22 14:04 99 02/05/22 14:04 73 02/05/22 14:00 18 02/05/22 14:00 18 02/05/22 13:59 99 02/05/22 13:59 75 02/05/22 13:56 64 02/05/22 13:56 117/75 02/05/22 13:54 98 02/05/22 13:54 62 02/05/22 13:49 100 02/05/22 13:49 61 02/05/22 13:31 18 02/05/22 13:31 18 02/05/22 13:44 100 02/05/22 13:44 66 02/05/22 13:39 100 02/05/22 13:39 69 02/05/22 13:34 100 02/05/22 13:34 71 02/05/22 13:29 100 02/05/22 13:29 70 02/05/22 13:24 100 02/05/22 13:24 69 02/05/22 13:19 100 02/05/22 13:19 62 02/05/22 13:14 100 02/05/22 13:14 86 02/05/22 13:09 99 02/05/22 13:09 60 02/05/22 13:04 99 02/05/22 13:04 59 L 02/05/22 12:59 99 02/05/22 12:59 61 02/05/22 12:54 99 02/05/22 12:54 60 02/05/22 12:49 99 02/05/22 12:49 62 02/05/22 12:44 99 02/05/22 12:44 61 02/05/22 12:39 98 02/05/22 12:39 81 02/05/22 12:34 98 02/05/22 12:34 74 02/05/22 12:30 18 02/05/22 12:30 18 02/05/22 12:29 99 02/05/22 12:29 65 02/05/22 12:15 18 02/05/22 12:15 18 02/05/22 12:00 18 02/05/22 12:00 18 02/05/22 12:24 98 02/05/22 12:24 73 02/05/22 12:19 99 02/05/22 12:19 70 02/05/22 12:14 98 02/05/22 12:14 74 02/05/22 12:09 99 02/05/22 12:09 84 02/05/22 12:04 99 02/05/22 12:04 76 02/05/22 11:59 98 02/05/22 11:59 63 02/05/22 11:30 18 02/05/22 11:30 18 02/05/22 11:54 98 02/05/22 11:54 73 02/05/22 11:49 99 02/05/22 11:49 85 02/05/22 11:44 97 02/05/22 11:44 63 02/05/22 11:39 97 02/05/22 11:39 63 02/05/22 11:34 97 02/05/22 11:34 65 02/05/22 11:29 98 02/05/22 11:29 63 02/05/22 11:24 97 02/05/22 11:24 62 02/05/22 11:19 98 02/05/22 11:19 64 02/05/22 11:14 98 02/05/22 11:14 71 02/05/22 10:55 18 02/05/22 10:55 18 02/05/22 11:09 98 02/05/22 11:09 74 02/05/22 11:04 98 02/05/22 11:04 74 02/05/22 10:51 98 02/05/22 10:51 70 02/05/22 10:48 68 02/05/22 10:48 119/69 02/05/22 10:46 97 02/05/22 10:46 67 02/05/22 10:41 97 02/05/22 10:41 73 02/05/22 10:36 97 02/05/22 10:36 71 02/05/22 10:34 71 02/05/22 10:34 122/76 02/05/22 10:32 97 02/05/22 10:32 81 02/05/22 10:30 18 02/05/22 10:30 18 02/05/22 10:15 18 02/05/22 10:15 18 02/05/22 10:26 97 02/05/22 10:26 81 02/05/22 10:21 97 02/05/22 10:21 81 02/05/22 10:18 68 02/05/22 10:18 119/66 02/05/22 10:16 97 02/05/22 10:16 69 02/05/22 10:11 97 02/05/22 10:11 68 02/05/22 10:06 97 02/05/22 10:06 70 02/05/22 09:59 18 02/05/22 09:59 18 02/05/22 10:03 72 02/05/22 10:03 119/69 02/05/22 10:01 97 02/05/22 10:01 82 02/05/22 09:56 97 02/05/22 09:56 80 02/05/22 09:15 20 02/05/22 09:15 20 02/05/22 09:31 16 02/05/22 09:31 16 02/05/22 09:45 16 02/05/22 09:45 16 02/05/22 08:59 18 02/05/22 08:59 18 02/05/22 09:05 18 02/05/22 09:05 18 02/05/22 09:51 98 02/05/22 09:51 81 02/05/22 09:48 78 02/05/22 09:48 125/71 02/05/22 09:46 97 02/05/22 09:46 73 02/05/22 09:42 97 02/05/22 09:42 85 02/05/22 09:36 97 02/05/22 09:36 83 02/05/22 09:34 80 02/05/22 09:34 127/73 02/05/22 09:32 97 02/05/22 09:32 83 02/05/22 09:26 97 02/05/22 09:26 79 02/05/22 09:22 97 02/05/22 09:22 76 02/05/22 09:18 79 02/05/22 09:18 130/76 02/05/22 09:16 97 02/05/22 09:16 78 02/05/22 09:13 70 02/05/22 09:13 127/70 02/05/22 09:12 97 02/05/22 09:12 81 02/05/22 09:09 74 02/05/22 09:09 129/67 02/05/22 09:07 97 02/05/22 09:07 82 02/05/22 09:02 74 02/05/22 09:02 129/68 02/05/22 09:02 97 02/05/22 09:02 84 02/05/22 09:00 76 02/05/22 09:00 130/74 02/05/22 08:58 74 02/05/22 08:58 130/71 PG Care Time/CCT Total # of Minutes Spent Total Time Spent with Patient: Total time spent is greater than 50% in coordination of care (as documented) at patient's floor/unit and/or counseling patient: Coding Level of Care Code None
[2022-02-05] MEDS ORDERED: CITRIC ACID/SODIUM CITRATE 15 ML UDC ONE (21:10)
[2022-02-05] MEDS ORDERED: CLINDAMYCIN/D5W 900 MG/50 ML BAG IV SCH (21:15)
[2022-02-05] MEDS ORDERED: GENTAMICIN SULFATE 380 MG in DEXTROSE 5% 100 ML IV SCH (21:15)
[2022-02-05] MEDS ORDERED: OXYTOCIN 10 UNITS/ML 10ML VIAL ONE ×2 (22:23→22:44)
[2022-02-05] MEDS ORDERED: KETAMINE 50 MG/5 ML SYRINGE ONE (22:32)
[2022-02-05] MEDS ORDERED: MIDAZOLAM HCL 1 MG/ML 2ML VIAL ONE (22:38)
[2022-02-05] MEDS ORDERED: MoRPHine SULFATE PF 1 MG/ML 10 ML AMP/VIAL ONE (22:46)
--- NOTE | 2022-02-05 22:55 | Operative Report ---
PG Post Operative Report Pre & Post Diagnosis Operation Date: 02/05/22 21:30 <No data on this case meets the specified criteria> I identified the patient and participated in the time-out.: Yes Procedure Operation Date: 02/05/22 21:30 <No data on this case meets the specified criteria> Surgeon Calli Membreno MD, FACOG Head Of Physics Dr. Haynes Estimated Blood Loss 600 Findings Consistent with Post-Op Diagnosis Specimens Cord blood cord gases Description of Procedure Regional anesthetic had been given by anesthesia patient was prepped and draped with a leftward tilt preoperative antibiotics had been given in appropriate timing by anesthesiology. Once the prep was allowed to fully dry timeout was performed. Pickups with teeth were used to test the incision area was found to be adequate for incision as the patient did not feel sharp pain. Scalpel was used to make a Pfannenstiel incision on the lower abdomen. We then cut through the subcutaneous fat down to the level of the anterior rectus sheath fascia this was cut in the midline and then extended laterally with the curved Story scissors. At this stage we then placed 2 Praveena clamps on the anterior aspect of the fascia. Using the curved Story's we are able to dissect the fascia superiorly away from the rectus muscles. Care was taken to maintain hemostasis. Praveena clamps were then placed to the inferior aspect of the anterior sheath of the fascia. Fascia was then dissected away from the rectus muscles inferiorly towards the pubic bone. A Praveena was then placed in the midline both inferiorly and superiorly. This was to allow exposure by retraction rectus muscles were in the midline with were then able to cut through the peritoneum and then enter the peritoneal cavity. Opening was enlarged to allow exposure of the peritoneal cavity both superiorly and inferiorly. Once adequate space was obtained a bladder retractor was placed to expose the lower segment Metzenbaums were used to dissect the bladder flap inferiorly away from the uterus. This was done sharply bladder retractor was then repositioned to expose the lower segment of the uterus Fresh scalpel was used to make a low transverse incision on the uterus. Uterus was then entered bluntly with the operators finger, membranes ruptured and the opening was enlarged using the operators fingers bluntly pulling superiorly and inferiorly to allow exposure. Baby was delivered by first flexion of the head elevation of the head out of the pelvis and then pressure by the healthcare administrative assistant on the maternal abdomen. Baby's head was then delivered mouth and then nares were suctioned and then using gentle traction the baby was fully delivered. Live vigorous infant. Fluid was clear cord clamped and cut cord gases obtained cord blood obtained baby handed to pediatrics. Placenta removed was removed with traction we ensure the entire placenta was removed with a moist lap sponge into the uterus It should be noted the baby was in direct occiput posterior position Uterus was then exteriorized. IV Pitocin had been started by anesthesia tone improved there were no extensions the uterus was then closed using 0 Monocryl in a 2 layer closure the first layer closed in a running locked fashion from left to right and then a second closure from left to right in a running nonlocked fashion. At this stage hemostasis was excellent. Uterus was placed back in the peritoneal cavity with suction irrigation out and inspection of the uterus at this stage revealed excellent hemostasis should be noted that the adnexa were normal there was a small cervical serosal fibroid on the back of the uterus approximately 3 cm in size no other anatomic abnormalities Retractors were removed urine color was clear at this stage of the case we i nspected the rectus muscles they were hemostatic fascia was closed with 0 Vicryl subcutaneous fat was irrigated and closed with 3-0 Vicryl skin closed with 4-0 subcuticular Monocryl I attest to the content of the Intraoperative Record and any orders documented therein. Any exceptions are noted below. OB Procedure Charges 31703
[2022-02-05] MEDS ORDERED: MoRPHine SULFATE 2 MG/ML CARP IV PRN (22:56)
[2022-02-05] MEDS ORDERED: LACTATED RINGER'S 500 ML IV PRN (22:56)
[2022-02-05] MEDS ORDERED: MoRPHine SULFATE PF 1 MG/ML 10 ML AMP/VIAL EPI ONE (22:56)
[2022-02-05] MEDS ORDERED: NALOXONE HCL 0.08 MG in SYRINGE 1.8 ML IV PRN (22:56)
[2022-02-05] MEDS ORDERED: NO NARCOTICS OR SEDATIVES SCH (23:00)
[2022-02-05] MEDS ORDERED: SODIUM CHLORIDE 0.9% 1000ML 1,000 ML IV SCH (23:00)
[2022-02-05] MEDS ORDERED: DC INTRASPINAL MORPHINE SCH (23:00)
--- NOTE | 2022-02-05 23:08 | Anesthesia Procedure Note ---
Date of Service February 05, 2022 Anesthesia Post Epidural Note Vital Signs Vital Signs: Temp Pulse Resp BP Pulse Ox 36.8 C 107 H 18 124/61 98 02/05/22 20:40 02/05/22 23:03 02/05/22 21:30 02/05/22 23:03 02/05/22 23:03 Notes Mental Status: alert / awake / arousable and participated in evaluation Patient Amnestic to Procedure: No Nausea / Vomiting: adequately controlled Pain: adequately controlled Airway Patency, RR, SpO2: stable & adequate BP & HR: stable & adequate Hydration State: stable & adequate Neuraxial Anesthesia: was administered and sensory block is resolving Anesthetic Complications: no major complications apparent and Pt Satisfied with anesthetic care Epidural: Removed without complications and With tip intact
[2022-02-05] MEDS ORDERED: DIPHTHERIA/TETANUS/PERTUSSIS 0.5 ML SYR/VIAL IM ONE (23:18)
[2022-02-05] MEDS ORDERED: HYDROCORTISONE ACETATE 25 MG SUPP PR PRN (23:18)
[2022-02-05] MEDS ORDERED: SENNA 8.6 MG TAB PO PRN (23:18)
[2022-02-05] MEDS ORDERED: LACTATED RINGER'S 1,000 ML IV SCH (23:18)
[2022-02-05] MEDS ORDERED: BENZOCAINE 20% AER SPR 82.5 GM CAN EXT PRN (23:18)
[2022-02-05] MEDS ORDERED: MAGNESIUM HYDROXIDE SUSP 30 ML UDC PO PRN (23:18)
[2022-02-05] MEDS: KETOROLAC 30 MG/ML VIAL IV PRN (23:36)
[2022-02-05 23:45] LABS: Base Excess Cord Venous Blood 0.7 mEq/L (-7.7-1.9); Cord Venous Blood HCO3 28 mmol/L (18.4-26.8); Cord Venous Blood PCO2 54 mmHg (30.4-57.2); Cord Venous Blood PO2 17 mmHg (14.1-43.3); Cord Venous Blood pH 7.32 (7.20-7.44); O2 Saturation Cord Venous Bld < 60.0 % (<68)
[2022-02-06] MEDS: OXYTOCIN 20 UNITS in LACTATED RINGER'S 1,000 ML IV SCH ×2 (01:05→08:49)
[2022-02-06] MEDS: KETOROLAC 30 MG/ML VIAL IV PRN ×2 (06:42→11:54)
--- NOTE | 2022-02-06 07:11 | Obstetrical Progress Note ---
Date of Service <Jakob TaylorBrett Live DO - Last Filed: 02/06/22 07:43> February 06, 2022 Assessment & Plan <Jakob WellingtonDO gin - Last Filed: 02/06/22 07:43> (1) S/P section: - Feels well today. Eating well, voiding well, ambulating well. - Pain well controlled with ibuprofen 600mg Q4H PRN and Percocet 5/325 PRN Q4H - Routine care -- OOB, ambulation, diet progression as tolerated - After discharge will have 6 week follow-up with [facility] <Calli Membreno MD, FACOG - Last Filed: 02/06/22 07:45> (1) S/P section: Subjective <Jakob WellingtonDO gin - Last Filed: 02/06/22 07:43> Patient is a 36 y/o female who is POD #1 following delivery at 38 weeks. She reports feeling well overall this morning. Moderate abdominal cramp ing & 7/10 pain well managed on analgesics. Has Reich in. Tolerating meals overnight and has not tried to ambulate yet. Has not pass gas and has not had a bowel movement. Has some persistent lochia with some improvement this morning. Currently breast feeding. Review of Systems Denies fever, chills, sweats Denies shortness of breath, difficulty breathing, chest pain, palpitations, chest pressure. Denies breast pain. Denies dysuria. Denies headache or changes in vision. Physical Exam <Jakob TaylorBrett Live DO - Last Filed: 02/06/22 07:43> General: Alert, oriented. No acute distress. Cardiac: Regular rate and rhythm, no murmurs/rubs/gallops. Respiratory: Clear to auscultation bilaterally a/p, no wheezes/rales/rhonchi. No increased work of breathing. Symmetrical chest rise. No respiratory distress. Abdomen: Soft, nontender, nondistended. Bowel sounds present. Uterus: Uterine fundus firm, palpable 1 cm below umbilicus. Lower Extremities: No lower extremity edema or swelling. No deep calf pain. Christelle's negative bilaterally. Results & Data ([facility]) <Jakob Taylor. Buza, DO - Last Filed: 02/06/22 07:43> Vital Signs (Past 12 Hours) Vital Signs Temp Pulse Pulse Pulse Resp BP BP 02/06/22 06:00 18 02/06/22 05:00 18 02/06/22 04:00 18 02/06/22 02:00 18 02/06/22 03:00 36.8 C 76 18 126/74 02/06/22 03:00 18 02/06/22 01:25 18 02/06/22 00:32 18 L 16 02/06/22 01:19 36.9 C 72 18 137/79 02/05/22 23:52 18 02/05/22 23:42 18 02/05/22 23:32 18 02/05/22 23:22 18 02/05/22 23:12 18 02/05/22 23:02 36.4 C L 18 02/06/22 00:02 20 02/06/22 01:03 71 130/65 02/06/22 00:58 68 02/06/22 00:53 02/06/22 00:53 72 02/06/22 00:53 73 130/70 02/06/22 00:48 95 H 02/06/22 00:43 02/06/22 00:43 85 02/06/22 00:43 84 140/72 02/06/22 00:38 71 02/06/22 00:33 71 136/77 02/06/22 00:28 72 02/06/22 00:23 02/06/22 00:23 75 02/06/22 00:23 72 130/76 02/06/22 00:18 85 02/06/22 00:13 02/06/22 00:13 75 02/06/22 00:13 75 137/78 02/06/22 00:08 76 02/06/22 00:03 73 139/74 02/05/22 23:58 02/05/22 23:58 89 02/05/22 23:53 02/05/22 23:53 82 02/05/22 23:53 133/72 02/05/22 23:48 02/05/22 23:48 87 02/05/22 23:43 02/05/22 23:43 88 02/05/22 23:43 84 02/05/22 23:43 133/70 02/05/22 23:38 02/05/22 23:38 86 02/05/22 23:35 86 02/05/22 23:35 131/62 02/05/22 23:33 02/05/22 23:33 90 02/05/22 23:28 02/05/22 23:28 95 H 02/05/22 23:25 98 H 02/05/22 23:25 125/61 02/05/22 23:23 02/05/22 23:23 103 H 02/05/22 23:22 02/05/22 23:22 103 H 02/05/22 23:18 02/05/22 23:18 108 H 02/05/22 23:15 108 H 02/05/22 23:15 128/60 02/05/22 23:13 02/05/22 23:13 119 H 02/05/22 23:08 02/05/22 23:08 105 H 02/05/22 23:03 02/05/22 23:03 107 H 02/05/22 23:03 104 H 02/05/22 23:03 124/61 02/05/22 22:04 88 02/05/22 22:04 130/80 02/05/22 22:00 02/05/22 22:00 83 02/05/22 22:00 83 02/05/22 22:00 139/85 02/05/22 21:58 81 02/05/22 21:58 133/82 02/05/22 21:56 02/05/22 21:56 90 02/05/22 21:55 02/05/22 21:55 95 H 02/05/22 21:56 89 02/05/22 21:56 132/81 02/05/22 21:50 02/05/22 21:50 81 02/05/22 21:45 02/05/22 21:45 83 02/05/22 21:41 80 02/05/22 21:41 138/78 02/05/22 21:39 02/05/22 21:39 81 02/05/22 21:34 02/05/22 21:34 85 02/05/22 21:30 18 02/05/22 21:30 18 02/05/22 21:00 18 12/02/22 21:00 18 02/05/22 21:29 02/05/22 21:29 89 02/05/22 21:26 75 02/05/22 21:26 134/79 02/05/22 21:24 02/05/22 21:24 78 02/05/22 21:19 02/05/22 21:19 82 02/05/22 21:14 02/05/22 21:14 81 02/05/22 21:11 85 02/05/22 21:11 146/81 H 02/05/22 21:09 02/05/22 21:09 93 H 02/05/22 21:04 02/05/22 21:04 106 H 02/05/22 20:59 02/05/22 20:59 85 02/05/22 20:56 83 02/05/22 20:56 147/92 H 02/05/22 20:54 02/05/22 20:54 89 02/05/22 20:40 36.8 C 02/05/22 20:49 02/05/22 20:49 106 H 02/05/22 20:44 02/05/22 20:44 94 H 02/05/22 20:39 02/05/22 20:39 106 H 02/05/22 20:30 18 02/05/22 20:30 18 02/05/22 20:34 02/05/22 20:34 103 H 02/05/22 20:32 86 02/05/22 20:32 117/70 02/05/22 20:29 02/05/22 20:29 80 02/05/22 20:24 02/05/22 20:24 89 02/05/22 20:19 02/05/22 20:19 88 02/05/22 20:14 02/05/22 20:14 100 H 02/05/22 20:11 02/05/22 20:11 96 H 02/05/22 20:09 02/05/22 20:09 99 H 02/05/22 20:00 18 02/05/22 20:00 18 02/05/22 20:05 02/05/22 20:05 98 H 02/05/22 20:04 02/05/22 20:04 100 H 02/05/22 19:59 02/05/22 19:59 75 02/05/22 19:54 02/05/22 19:54 100 H 02/05/22 19:49 02/05/22 19:49 97 H 02/05/22 19:44 02/05/22 19:44 85 02/05/22 19:42 96 H 02/05/22 19:42 161/72 H 02/05/22 19:39 02/05/22 19:39 108 H 02/05/22 19:34 02/05/22 19:34 84 02/05/22 19:30 18 02/05/22 19:30 18 02/05/22 19:29 02/05/22 19:29 90 02/05/22 19:29 02/05/22 19:29 89 02/05/22 19:26 92 H 02/05/22 19:26 141/91 H 02/05/22 19:24 02/05/22 19:24 97 H 02/05/22 19:19 02/05/22 19:19 89 02/05/22 19:14 02/05/22 19:14 96 H Pulse Ox O2 Del Method 02/06/22 06:00 94 02/06/22 05:00 94 02/06/22 04:00 96 02/06/22 02:00 96 02/06/22 03:00 96 Room Air 02/06/22 03:00 96 02/06/22 01:25 96 02/06/22 00:32 Room Air 02/06/22 01:19 96 Room Air 02/05/22 23:52 Room Air 02/05/22 23:42 Room Air 02/05/22 23:32 02/05/22 23:22 02/05/22 23:12 Room Air 02/05/22 23:02 96 02/06/22 00:02 02/06/22 01:03 02/06/22 00:58 95 02/06/22 00:53 96 02/06/22 00:53 02/06/22 00:53 02/06/22 00:48 96 02/06/22 00:43 96 02/06/22 00:43 02/06/22 00:43 02/06/22 00:38 97 02/06/22 00:33 97 02/06/22 00:28 97 02/06/22 00:23 97 02/06/22 00:23 02/06/22 00:23 02/06/22 00:18 97 02/06/22 00:13 97 02/06/22 00:13 02/06/22 00:13 02/06/22 00:08 97 02/06/22 00:03 97 02/05/22 23:58 97 02/05/22 23:58 02/05/22 23:53 97 02/05/22 23:53 02/05/22 23:53 02/05/22 23:48 98 02/05/22 23:48 02/05/22 23:43 97 02/05/22 23:43 02/05/22 23:43 02/05/22 23:43 02/05/22 23:38 97 02/05/22 23:38 02/05/22 23:35 02/05/22 23:35 02/05/22 23:33 97 02/05/22 23:33 02/05/22 23:28 97 02/05/22 23:28 02/05/22 23:25 02/05/22 23:25 02/05/22 23:23 96 02/05/22 23:23 02/05/22 23:22 90 02/05/22 23:22 02/05/22 23:18 100 02/05/22 23:18 02/05/22 23:15 02/05/22 23:15 02/05/22 23:13 96 02/05/22 23:13 02/05/22 23:08 98 02/05/22 23:08 02/05/22 23:03 98 02/05/22 23:03 02/05/22 23:03 02/05/22 23:03 02/05/22 22:04 02/05/22 22:04 02/05/22 22:00 96 02/05/22 22:00 02/05/22 22:00 02/05/22 22:00 02/05/22 21:58 02/05/22 21:58 02/05/22 21:56 91 02/05/22 21:56 02/05/22 21:55 98 02/05/22 21:55 02/05/22 21:56 02/05/22 21:56 02/05/22 21:50 96 02/05/22 21:50 02/05/22 21:45 97 02/05/22 21:45 02/05/22 21:41 02/05/22 21:41 02/05/22 21:39 100 02/05/22 21:39 02/05/22 21:34 100 02/05/22 21:34 02/05/22 21:30 02/05/22 21:30 02/05/22 21:00 02/05/22 21:00 02/05/22 21:29 100 02/05/22 21:29 02/05/22 21:26 02/05/22 21:26 02/05/22 21:24 100 02/05/22 21:24 02/05/22 21:19 100 02/05/22 21:19 02/05/22 21:14 99 02/05/22 21:14 02/05/22 21:11 02/05/22 21:11 02/05/22 21:09 100 02/05/22 21:09 02/05/22 21:04 99 02/05/22 21:04 02/05/22 20:59 100 02/05/22 20:59 02/05/22 20:56 02/05/22 20:56 02/05/22 20:54 100 02/05/22 20:54 02/05/22 20:40 02/05/22 20:49 98 02/05/22 20:49 02/05/22 20:44 97 02/05/22 20:44 02/05/22 20:39 100 02/05/22 20:39 02/05/22 20:30 02/05/22 20:30 02/05/22 20:34 100 02/05/22 20:34 02/05/22 20:32 02/05/22 20:32 02/05/22 20:29 100 02/05/22 20:29 02/05/22 20:24 100 02/05/22 20:24 02/05/22 20:19 100 02/05/22 20:19 02/05/22 20:14 100 02/05/22 20:14 02/05/22 20:11 90 02/05/22 20:11 02/05/22 20:09 98 02/05/22 20:09 02/05/22 20:00 02/05/22 20:00 02/05/22 20:05 90 02/05/22 20:05 02/05/22 20:04 99 02/05/22 20:04 02/05/22 19:59 100 02/05/22 19:59 02/05/22 19:54 100 02/05/22 19:54 02/05/22 19:49 100 02/05/22 19:49 02/05/22 19:44 100 02/05/22 19:44 02/05/22 19:42 02/05/22 19:42 02/05/22 19:39 100 02/05/22 19:39 02/05/22 19:34 100 02/05/22 19:34 02/05/22 19:30 02/05/22 19:30 02/05/22 19:29 83 L 02/05/22 19:29 02/05/22 19:29 92 02/05/22 19:29 02/05/22 19:26 02/05/22 19:26 02/05/22 19:24 100 02/05/22 19:24 02/05/22 19:19 100 02/05/22 19:19 02/05/22 19:14 100 02/05/22 19:14 <Calli Membreno MD, FACOG - Last Filed: 02/06/22 07:45> Co-Signing Physician Notes Resident Physician Supervision Note: I was present with Dr. Live during the history and exam. I discussed the case with the resident and agree with the findings and plan as documented in the note. Any exceptions or clarifications are listed here: [None] Documented By: Calli Membreno MD, FACOG Resident Activity Tracking <Jakob Live DO - Last Filed: 02/06/22 07:43> Resident Involvement: Resident Care Provided Care Provided: OB Delivery
[2022-02-06 08:07] LABS: Basophils # (auto) 0.04 K/uL (0-0.2); Basophils % (auto) 0.2 %; Eosinophils # (auto) 0.02 K/uL (0-0.50); Eosinophils % (auto) 0.1 %; Hematocrit (blood only) 30.5 % (34.1-44.9); Hemoglobin 10.6 g/dl (12.0-16.0); Immature Granulocytes # (auto) 0.09 K/uL (0.00-0.02); Immature Granulocytes % (auto) 0.5 %; Lymphocytes # (auto) 1.68 K/uL (1.2-3.4); Lymphocytes % (auto) 9.4 %; Mean Corpuscular Hemoglobin 31.4 pg (25.0-34.0); Mean Corpuscular Hgb Conc 34.8 g/dL (32.0-36.0); Mean Corpuscular Volume 90.2 fL (80.0-100.0); Mean Platelet Volume 11.3 fL (9.4-12.3); Monocytes # (auto) 1.31 K/uL (0.24-0.82); Monocytes % (auto) 7.3 %; Neutrophils # (auto) 14.77 K/uL (1.4-6.5); Neutrophils % (auto) 82.5 %; Platelet Count 184 K/uL (130-400); RDW Coefficient of Variation 13.3 % (11.5-14.5); RDW Standard Deviation 43.5 fL (36.4-46.3); Red Blood Count 3.38 M/uL (3.93-5.22); White Blood Count 17.91 K/ul (4.8-10.8)
[2022-02-06] MEDS: FERROUS SULFATE 325 MG TAB PO SCH (09:10)
[2022-02-06] MEDS: DOCUSATE SODIUM 100 MG CAP PO SCH ×2 (09:10→20:08)
[2022-02-06] MEDS: SIMETHICONE 80 MG CHEW PO SCH ×4 (09:10→20:08)
[2022-02-06] MEDS: PRENATAL VITAMIN 1 TAB PO SCH (09:11)
[2022-02-06] MEDS ORDERED: PROMETHAZINE HCL 25 MG in SODIUM CHLORIDE 0.9% 50 ML IV PRN (16:57)
[2022-02-06] MEDS ORDERED: KETOROLAC 30 MG/ML VIAL IV PRN (16:57)
[2022-02-06] MEDS ORDERED: ONDANSETRON INJ 2 MG/ML 2 ML VIAL IV PRN (16:57)
[2022-02-06] MEDS ORDERED: diphenhydrAMINE 50 MG/ML VIAL IV PRN (16:57)
[2022-02-06] MEDS ORDERED: diphenhydrAMINE Capsule 25 MG CAP PO PRN (16:57)
[2022-02-06] MEDS: oxyCODONE/ACETAMINOPHEN 5mg/325mg TAB PO PRN ×2 (17:31→21:35)
[2022-02-06] MEDS: IBUPROFEN 600 MG TAB PO PRN ×2 (17:32→21:35)
[2022-02-06] MEDS ORDERED: bisacodyL 5 MG TABEC PO SCH (20:00)
[2022-02-07] MEDS ORDERED: bisacodyL 10 MG SUPP PR PRN
[2022-02-07] MEDS: oxyCODONE/ACETAMINOPHEN 5mg/325mg TAB PO PRN ×6 (01:42→22:23)
[2022-02-07] MEDS: IBUPROFEN 600 MG TAB PO PRN ×6 (01:42→22:22)
[2022-02-07 07:47] LABS: Hematocrit (blood only) 30.8 % (34.1-44.9); Hemoglobin 10.4 g/dl (12.0-16.0)
--- NOTE | 2022-02-07 08:05 | Obstetrical Progress Note ---
Date of Service February 07, 2022 Assessment & Plan (1) S/P section: Plan Doing well. Routine care. Likely d/c tomorrow. Day #:: 2 Subjective Ambulation: ambulating normally Voiding: no voiding problems Passing Gas:: Yes Diet Tolerance:: regular diet Lochia:: Small Feeding Type:: breast feeding Patient notes pain well controlled. Feeling overall well. Physical Exam Constitutional WD/WN, vitals as above Cardiovascular Extremities: + edema (tr); no calf tenderness Gastrointestinal (Abdomen) soft, nt, nd incision--c/d/i ff/nt at u Psychiatric A+Ox3, euthymic affect Results & Data ([facility]) Vital Signs (Past 12 Hours) Vital Signs Temp Pulse Resp BP Pulse Ox O2 Del Method 02/06/22 23:31 36.5 C 69 18 130/83 95 Room Air
[2022-02-07] MEDS: DOCUSATE SODIUM 100 MG CAP PO SCH ×2 (09:54→20:58)
[2022-02-07] MEDS: SIMETHICONE 80 MG CHEW PO SCH ×4 (09:54→20:57)
[2022-02-07] MEDS: FERROUS SULFATE 325 MG TAB PO SCH (09:54)
[2022-02-07] MEDS: PRENATAL VITAMIN 1 TAB PO SCH (11:01)
[2022-02-08] MEDS: oxyCODONE/ACETAMINOPHEN 5mg/325mg TAB PO PRN ×3 (02:27→10:53)
[2022-02-08] MEDS: IBUPROFEN 600 MG TAB PO PRN ×3 (02:28→10:54)
--- NOTE | 2022-02-08 06:42 | Obstetrical Progress Note ---
Date of Service <Jakob Live DO - Last Filed: 02/08/22 07:00> February 08, 2022 Assessment & Plan <Jakob Live DO - Last Filed: 02/08/22 07:00> (1) S/P section: - Feels well today. Eating well, voiding well, ambulating well. - Pain well controlled with ibuprofen and Percocet - Routine care -- OOB, ambulation, diet progression as tolerated - After discharge will have 6 week follow-up with Dr. Membreno. - Will D/C today. Day #:: 3 <Medina Rose MD, FACOG - Last Filed: 02/08/22 07:17> (1) S/P section: Subjective <Jakob Live DO - Last Filed: 02/08/22 07:00> Ambulation: ambulating normally Voiding: no voiding problems Passing Gas:: Yes Diet Tolerance:: regular diet Lochia:: Small Feeding Type:: breast feeding Current Pain Level(1-10): 2 Review of Systems Denies fever, chills, sweats Denies shortness of breath, difficulty breathing, chest pain, palpitations, chest pressure. Denies breast pain. Denies dysuria. Denies headache or changes in vision. Physical Exam <Jakob Live DO - Last Filed: 02/08/22 07:00> General: Alert, oriented. No acute distress. Cardiac: Regular rate and rhythm, no murmurs/rubs/gallops. Respiratory: Clear to auscultation bilaterally a/p, no wheezes/rales/rhonchi. No increased work of breathing. Symmetrical chest rise. No respiratory distress. Abdomen: Soft, nontender, nondistended. Bowel sounds present. Uterus: Uterine fundus firm, palpable 1 cm below umbilicus. Lower Extremities: No lower extremity edema or swelling. No deep calf pain. Christelle's negative bilaterally. Results & Data ([facility]) <Jakob Live DO - Last Filed: 02/08/22 07:00> Vital Signs (Past 12 Hours) Vital Signs Temp Pulse Resp BP Pulse Ox O2 Del Method 02/07/22 23:03 36.5 C 74 18 128/77 97 Room Air 02/07/22 20:50 Room Air 02/07/22 20:50 36.6 C 78 18 130/74 99 Room Air <Medina Rose MD, FACOG - Last Filed: 02/08/22 07:17> Co-Signing Physician Notes Resident Physician Supervision Note: I interviewed and examined the patient. Discussed with Dr. Live and agree with findings and plan as documented in the note. Any exceptions or clarifications are listed here: Doing well. Plan d/c. Instructions given. Documented By: Medina Rose MD, FACOG Resident Activity Tracking <Jakob Live, - Last Filed: 02/08/22 07:00> Resident Involvement: Resident Care Provided Care Provided: OB Delivery
[2022-02-08] MEDS: PRENATAL VITAMIN 1 TAB PO SCH (08:55)
[2022-02-08] MEDS: SIMETHICONE 80 MG CHEW PO SCH (08:55)
[2022-02-08] MEDS: FERROUS SULFATE 325 MG TAB PO SCH (08:55)
[2022-02-08] MEDS: DOCUSATE SODIUM 100 MG CAP PO SCH (08:55)
== END 2022-02-08 11:25 | disposition home or self-care (01) | DRG 788 ==
LOC: OPB 07:11 → 4S1 07:13 → 4E2 02-06 01:38